=== PATIENT | female | born 1985 | race Caucasian/White ===

== ENCOUNTER 2021-01-11 04:50 | Inpatient (IN) | payer MEDICAID ==
[~2021-01-11] VITALS: Ht 165.1 cm; Wt 104.3 kg
[2021-01-11] MEDS ORDERED: PNV91TAB10 PO (05:49)
[2021-01-11] MEDS ORDERED: OSC500 PO (05:50)
[2021-01-11] MEDS ORDERED: FERR236T2 PO (05:50)
[2021-01-11 06:11] VITALS: BP 116/58
[2021-01-11] MEDS ORDERED: BETAMETH ACET/BETAMETH NA PH 30 MG/5 ML VIAL IM SCH (07:30)
[2021-01-11 08:14] LABS: BASOPHILS % (AUTO) 0.1 % (0.0-2.0); EOSINOPHILS # (AUTO) 0.1 K/uL (0-0.4); EOSINOPHILS % (AUTO) 0.6 % (0.0-4.0); HEMATOCRIT 32.6 % (36-48); HEMOGLOBIN 11.1 g/dL (12.0-16.0); LYMPHOCYTES # (AUTO) 1.4 K/uL (2.5-16.5); LYMPHOCYTES % (AUTO) 15.1 % (20.5-51.1); MEAN CORPUSCULAR HEMOGLOBIN 29 pg (27-31); MEAN CORPUSCULAR HGB CONC 34 g/dL (33-37); MEAN CORPUSCULAR VOLUME 85.4 fL (80-94); MONOCYTES # (AUTO) 0.7 K/uL (0.8-1.0); MONOCYTES % (AUTO) 7.4 % (1.7-9.3); NEUTROPHILS # (AUTO) 7.2 K/uL (1.8-7.7); NEUTROPHILS % (AUTO) 76.8 % (42.2-75.2); PLATELET COUNT (AUTO) 164 K/uL (140-450); RED BLOOD CELL COUNT(AUTO) 3.82 MIL/uL (4.20-5.40); WHITE BLOOD COUNT (AUTO) 9.4 K/uL (4.8-10.8)
[2021-01-11 08:23] LABS: ALBUMIN 2.3 g/dL (3.4-5.0); ANION GAP 13.3 (8-16); CREATININE 0.5 mg/dL (0.6-1.3); POTASSIUM 3.3 mmol/L (3.5-5.1); TOTAL BILIRUBIN 0.2 mg/dL (0.0-1.0)
--- NOTE | 2021-01-11 08:44 | NUR ---
PATIENT HAS BEEN SCREENED AND CATEGORIZED LOW NUTRITION RISK. PATIENT WILL BE SEEN WITHIN 7 DAYS OF ADMISSION. 01/17/[address]
[2021-01-11] MEDS ORDERED: INSULIN LISPRO SLIDING SCALE 100 UNITS/ML VIAL SUBQ PRN (09:50)
[2021-01-12] MEDS ORDERED: BETAMETH ACET/BETAMETH NA PH 30 MG/5 ML VIAL IM ONE (08:16)
[2021-01-12] MEDS ORDERED: LACTATED RINGERS 1,000 ML IV SCH (11:50)
[2021-01-12] MEDS ORDERED: MAG SULF 2000 MG/WATER PREMIX 100 ML IV ONE (12:00)
[2021-01-12] MEDS ORDERED: MAG SULF 20 GM/H2O PREMIX DRIP 500 ML IV PRN (12:00)
== END 2021-01-12 18:30 | disposition short-term general hospital (02) | DRG 566 ==
LOC: MLD 04:50 → OBSVTOIN 14:14
PROVIDERS: ADMIT Obstetrics & Gynecology; ATTEND Obstetrics & Gynecology
DX: O44.53 Low lying placenta with hemorrhage, third trimester (principal); O24.410 Gestational diabetes mellitus in pregnancy, diet controlled; Z20.822 Contact with and (suspected) exposure to COVID-19; Z3A.29 29 weeks gestation of pregnancy
CPT/HCPCS: G0378 ×9; 36415; 76805; 80053; 82948; 83735; 85025; 86886; 86900; 86901; J0702; J1815; J3475; Q0092